=== PATIENT | female | born 1950 ===

== ENCOUNTER 2018-06-04 12:29 | Emergency (ER) | payer MEDICARE ==
[2018-06-04 12:30] VITALS: BMI 23.8
[2018-06-04 13:01] VITALS: TEMP 98.1
[2018-06-04] MEDS ORDERED: Naproxen 550 mg Tab PO STA (13:11)
[2018-06-04] MEDS ORDERED: Naproxen 550 mg Tab PO ONE (13:18)
--- NOTE | 2018-06-04 14:05 | C.PDOC ---
Time Seen by Provider: 06/04/18 13:03 Chief Complaint (Nursing): Back Pain Past Medical History Vital Signs: Last Vital Signs Temp 98.1 F 06/04/18 12:58 Pulse 61 06/04/18 12:58 Resp 18 06/04/18 12:58 BP 116/63 06/04/18 12:58 Pulse Ox 96 06/04/18 12:58 - Medical History PMH: HTN Denies: Chronic Kidney Disease - Social History Hx Alcohol Use: No Hx Substance Use: No - Immunization History Hx Tetanus Toxoid Vaccination: No Hx Influenza Vaccination: No Hx Pneumococcal Vaccination: No ED Course And Treatment O2 Sat by Pulse Oximetry: 96 Disposition - Disposition
--- NOTE | 2018-06-04 14:07 | C.PDOC ---
History Of Present Illness 68 y/o female presents to ED complaining of right upper back pain x3 days that is constant and worsens with movement. Patient states she took ibuprofen without relief. She denies any chest pain, SOB, cough, fever, rash, falls, or any other injuries. Time Seen by Provider: 06/04/18 13:03 Chief Complaint (Nursing): Back Pain History Per: Patient History/Exam Limitations: no limitations Onset/Duration Of Symptoms: Days Current Symptoms Are (Timing): Still Present Past Medical History Reviewed: Historical Data, Nursing Documentation, Vital Signs Vital Signs: Last Vital Signs Temp 98.1 F 06/04/18 12:58 Pulse 61 06/04/18 12:58 Resp 18 06/04/18 12:58 BP 116/63 06/04/18 12:58 Pulse Ox 96 06/04/18 12:58 - Medical History PMH: HTN Denies: Chronic Kidney Disease Family History: States: No Known Family Hx - Social History Hx Alcohol Use: No Hx Substance Use: No - Immunization History Hx Tetanus Toxoid Vaccination: No Hx Influenza Vaccination: No Hx Pneumococcal Vaccination: No Review Of Systems Except As Marked, All Systems Reviewed And Found Negative. Constitutional: Negative for: Fever Cardiovascular: Negative for: Chest Pain Respiratory: Negative for: Cough, Shortness of Breath Musculoskeletal: Positive for: Back Pain (right upper region) Skin: Negative for: Rash Physical Exam - Physical Exam Appears: Non-toxic, In Acute Distress Skin: Warm, Dry, No Rash (on back) Head: Atraumatic, Normacephalic Eye(s): bilateral: Normal Inspection Oral Mucosa: Moist Neck: Supple Chest: Symmetrical Cardiovascular: Rhythm Regular, No Murmur Respiratory: Normal Breath Sounds, No Rales, No Rhonchi, No Wheezing Extremity: Tenderness (to palpation under spine of scapula on right side, no midline tenderness) Extremity: Bilateral: Normal Color And Temperature, Normal ROM Neurological/Psych: Oriented x3, Normal Speech (speaking full sentences) ED Course And Treatment O2 Sat by Pulse Oximetry: 96 (RA) Pulse Ox Interpretation: Normal - Other Rad CXR X-Ray: Read By Radiologist Interpretation: FINDINGS: LUNGS: No active pulmonary disease. PLEURA: No significant pleural effusion identified. No pneumothorax apparent. CARDIOVASCULAR: No aortic atherosclerotic calcification present. Normal cardiac size. No pulmonary vascular congestion. OSSEOUS STRUCTURES: No significant abnormalities. VISUALIZED UPPER ABDOMEN: Normal. OTHER FINDINGS: None. IMPRESSION: No active disease. Progress Note: Chest x-ray ordered and reviewed. Patient was given naproxen 550 mg PO and flexeril 10 mg PO. CXR negative. Instructed patient to follow up with PMD in 1-2 days for further evaluation and to return to ER if symptoms persist. Disposition Counseled Patient/Family Regarding: Studies Performed, Diagnosis, Need For Followup, Rx Given - Disposition Referrals: Fernando Lopez MD [Staff Provider] - Disposition: HOME/ ROUTINE Disposition Time: 14:10 Condition: STABLE Additional Instructions: FOLLOW UP WITH YOUR DOCTOR IN 1-2 DAYS USE MEDICATIONS NEEDED FOR PAIN RETURN TO EMERGENCY ROOM IF YOUR SYMPTOMS BECOME WORSE SEGUIR CON JURADO MDICO EN 1-2 LOUISE USAR MEDICAMENTOS JONH SE NECESITA PARA EL DOLOR VUELVA A LA ADRIÁN DE EMERGENCIA SI SANTOS SNTOMAS SE HACEN PE[place] Prescriptions: Cyclobenzaprine [Flexeril] 10 mg PO BID PRN #15 tab PRN Reason: Muscle Spasm Naproxen 375 mg PO BID PRN #20 tablet PRN Reason: pain Instructions: Upper Back Pain (DC) Forms: [employer] ([place]) Print Language: MONTENEGRIN - Clinical Impression Clinical Impression: Thoracic back pain - Scribe Statement The provider has reviewed the documentation as recorded by the Kevinibgrace Negrete Provider Attestation: All medical record entries made by the Kevinibe were at my direction and personally dictated by me. I have reviewed the chart and agree that the record accurately reflects my personal performance of the history, physical exam, medical decision making, and the department course for this patient. I have also personally directed, reviewed, and agree with the discharge instructions and disposition.
[2018-06-04 14:21] VITALS: BP 121/79; PULSE 78; RESP 16
[2018-06-04 14:25] VITALS: O2SAT 96
--- NOTE | 2018-06-04 14:28 | RAD ---
Date of service: 06/04/2018 HISTORY: RIGHT UPPER BACK PAIN COMPARISON: No prior. TECHNIQUE: Chest PA and lateral FINDINGS: LUNGS: No active pulmonary disease. PLEURA: No significant pleural effusion identified. No pneumothorax apparent. CARDIOVASCULAR: No aortic atherosclerotic calcification present. Normal cardiac size. No pulmonary vascular congestion. OSSEOUS STRUCTURES: No significant abnormalities. VISUALIZED UPPER ABDOMEN: Normal. OTHER FINDINGS: None. IMPRESSION: No active disease.
== END 2018-06-04 14:20 | disposition home or self-care (01) ==
LOC: C.ER 12:29
DX: M54.6 Pain in thoracic spine (principal); I10 Essential (primary) hypertension

== ENCOUNTER 2018-08-01 09:05 | Outpatient (CLI) | payer MEDICARE | END 2018-08-01 09:06 | disposition home or self-care (01) | LOC: C.DEXAIC 09:06 ==